=== PATIENT | male | born 1970 | race Two or more races ===

== ENCOUNTER → 2025-05-03 | Emergency (ER) | payer OTHER ==
[~2025-05-03] VITALS: Ht 180.3 cm; Wt 90.7 kg
[~2025-05-03] MED LIST: ADCIRCA20 MG; DEXAMETHASONE SODIUM PHOSPHATE 4 MG/ML VIAL IM ONE; KETO10TA2 PO; KETOROLAC TROMETHAMINE 30 MG VIAL IM ONE; NORFLEX100MG PO; ORPHENADRINE CITRATE 30 MG/ML AMPUL IM ONE; OXYBUTYNIN CHLO15 MG PO
== END | disposition home or self-care (01) ==
LOC: ER 13:03
DX: M25.512 Pain in left shoulder (principal); Z91.013 Allergy to seafood; Z91.018 Allergy to other foods